=== PATIENT | female | born 1935 | race Two or more races ===

== ENCOUNTER 2022-06-22 06:32 | Emergency (ER) | payer OTHER ==
[~2022-06-22] VITALS: Ht 152.4 cm; Wt 36.3 kg
[2022-06-22] MEDS ORDERED: PERCOCET 5-3251 EACH PO (09:28)
== END 2022-06-22 09:47 | disposition home or self-care (01) ==
LOC: ER 06:32
DX: S70.02XA Contusion of left hip, initial encounter (principal); S40.012A Contusion of left shoulder, initial encounter; W10.8XXA Fall (on) (from) other stairs and steps, initial encounter; Y93.9 Activity, unspecified; Y92.9 Unspecified place or not applicable